=== PATIENT | female | born 1950 | race Caucasian/White ===

== ENCOUNTER 2017-08-13 09:04 | Inpatient (IN) | payer BC ==
[~2017-08-13] VITALS: Ht 160 cm; Wt 133.8 kg
[2017-08-13 09:04] VITALS: BP_SYST 165
[~2017-08-13 09:04] MED LIST: AMIO200T39 PO; AMLO5TAB4 PO; ARI1 PO; GLU500 PO; HYDR12.55 PO; RAMI10CA27 PO; WARF5TAB2 PO
[2017-08-13] MEDS ORDERED: DILTIAZEM HCL 25 MG/5 ML VIAL IVP ONE ×3 (09:15→10:30)
[2017-08-13] MEDS ORDERED: VALS320T10 PO (09:20)
[2017-08-13] MEDS ORDERED: PRAV20TA PO (09:20)
[2017-08-13 09:39] LABS: BASOPHILS % (AUTO) 0.5 % (0.0-2.0); EOSINOPHILS # (AUTO) 0.2 K/uL (0.0-0.4); EOSINOPHILS % (AUTO) 2.2 % (0.0-4.0); HEMATOCRIT 46.7 % (36-48); HEMOGLOBIN 15.6 g/dL (12.0-16.0); LYMPHOCYTES # (AUTO) 2.1 K/uL (1.0-5.5); LYMPHOCYTES % (AUTO) 29.9 % (20.5-51.5); MEAN CORPUSCULAR HEMOGLOBIN 33 pg (27-31); MEAN CORPUSCULAR HGB CONC 34 % (32-36); MEAN CORPUSCULAR VOLUME 100 fL (79.0-98.0); MONOCYTES # (AUTO) 0.3 K/uL (0.0-1.0); MONOCYTES % (AUTO) 4.6 % (1.7-9.3); NEUTROPHILS # (AUTO) 4.3 K/uL (1.8-7.7); NEUTROPHILS % (AUTO) 62.8 % (40.0-70.0); PLATELET COUNT (AUTO) 262 K/uL (130-430); RED BLOOD CELL COUNT(AUTO) 4.68 MIL/uL (4.2-6.2); RED CELL DISTRIBUTION WIDTH 12.5 % (9.0-15.0); WHITE BLOOD COUNT (AUTO) 6.9 K/uL (4.8-10.8)
[2017-08-13 09:54] LABS: CALCIUM 9.3 mg/dL (8.4-11.0); CREATININE 1.03 mg/dL (0.55-1.30); POTASSIUM 4.2 mmol/L (3.5-5.1)
[2017-08-13 09:54] LABS: BILIRUBIN,URINE NEGATIVE (NEGATIVE); CLARITY/URINE SL HAZY (CLEAR); COLOR,URINE YELLOW (YELLOW); GLUCOSE,URINE NEGATIVE (NEGATIVE); KETONES,URINE TRACE (NEGATIVE); LEUKOCYTE ESTERASE ,URINE 1+ (NEGATIVE); NITRITE, URINE NEGATIVE (NEGATIVE); PH,URINE 6.5 (5.0-8.0); PROTEIN URINE 2+ (NEGATIVE); UROBILINOGEN,URINE 0.2 (0.2-1.0)
[2017-08-13 09:59] LABS: ALBUMIN 3.8 g/dL (3.4-4.8); INR 1.6 (0.8-1.2); PROTHROMBIN TIME 16.4 SECS (9.5-12.5); TOTAL BILIRUBIN 0.7 mg/dL (0.0-1.0)
[2017-08-13 10:04] LABS: BLOOD, URINE TRACE (NEGATIVE)
[2017-08-13 10:14] LABS: BACTERIA,URINE FEW /HPF (None Seen); MUCUS,URINE None Seen /LPF (None Seen); RBC,URINE 0-3 /HPF (0-3)
[2017-08-13 12:07] VITALS: BP_SYST 139
[2017-08-13 12:10] VITALS: BP_SYST 139
[2017-08-13] MEDS ORDERED: METOPROLOL TARTRATE 25 MG TABLET PO ONE (12:15)
[2017-08-13] MEDS ORDERED: DEXTROSE 50% JECT 50 ML DISP.SYRIN IVP PRN (12:15)
[2017-08-13 16:00] VITALS: BP_SYST 181
[2017-08-13] MEDS: metFORMIN HCL 500 MG TABLET PO SCH (17:09)
[2017-08-13] MEDS: INSULIN REGULAR, HUMAN 100 UNITS/ML, 10 ML VIAL (novoLIN R) SUBCUT PRN (17:11)
[2017-08-13] MEDS ORDERED: SIMVASTATIN 10 MG TABLET PO SCH (18:00)
[2017-08-13] MEDS ORDERED: WARFARIN SODIUM 5 MG TABLET PO SCH (18:00)
[2017-08-13] MEDS: AMIODARONE HCL 200 MG TABLET PO SCH ×2 (19:31→21:25)
[2017-08-13 20:00] VITALS: BP_SYST 169
[2017-08-13] MEDS ORDERED: METOPROLOL TARTRATE 25 MG TABLET PO SCH (21:00)
[2017-08-13] MEDS ORDERED: ACETAMINOPHEN 325 MG TABLET PO PRN (21:15)
[2017-08-13] MEDS: METOPROLOL TARTRATE 25 MG TABLET PO SCH (21:25)
[2017-08-13 23:50] VITALS: BP_SYST 143
[2017-08-14] MEDS: INSULIN REGULAR, HUMAN 100 UNITS/ML, 10 ML VIAL (novoLIN R) SUBCUT PRN ×3 (00:07→11:40)
[2017-08-14 03:52] VITALS: BP_SYST 169
[2017-08-14] MEDS: AMIODARONE HCL 200 MG TABLET PO SCH ×2 (06:01→14:34)
[2017-08-14] MEDS ORDERED: ONDANSETRON HCL 4 MG/2 ML VIAL IVP PRN (06:45)
[2017-08-14 07:21] LABS: INR 1.9 (0.8-1.2); PROTHROMBIN TIME 19.6 SECS (9.5-12.5)
[2017-08-14 08:00] VITALS: BP_SYST 126
[2017-08-14] MEDS: METOPROLOL TARTRATE 25 MG TABLET PO SCH (08:22)
[2017-08-14] MEDS: metFORMIN HCL 500 MG TABLET PO SCH (08:22)
[2017-08-14] MEDS ORDERED: PRAVASTATIN SODIUM 20 MG TABLET (PRAVACHOL) PO SCH (09:00)
[2017-08-14] MEDS ORDERED: ANASTROZOLE 1 MG TABLET (ARIMIDEX) PO SCH (09:00)
[2017-08-14 11:28] VITALS: BP_SYST 144
[2017-08-14 15:26] VITALS: BP_SYST 130
[2017-08-14 16:10] VITALS: BP_SYST 144
== END 2017-08-14 16:55 | disposition home or self-care (01) | DRG 309 ==
LOC: SED 09:04 → STU 10:54
PROVIDERS: ADMIT Internal Medicine Hospice and Palliative Medicine; ATTEND Internal Medicine Hospice and Palliative Medicine
DX: I48.0 Paroxysmal atrial fibrillation (principal); Z68.43 Body mass index [BMI] 50.0-59.9, adult; I11.0 Hypertensive heart disease with heart failure; I50.9 Heart failure, unspecified; E11.65 Type 2 diabetes mellitus with hyperglycemia; E66.01 Morbid (severe) obesity due to excess calories; I48.2 Chronic atrial fibrillation; G47.33 Obstructive sleep apnea (adult) (pediatric); Z85.3 Personal history of malignant neoplasm of breast; Z90.11 Acquired absence of right breast and nipple; Z90.49 Acquired absence of other specified parts of digestive tract; Z79.899 Other long term (current) drug therapy; Z90.5 Acquired absence of kidney; Z79.84 Long term (current) use of oral hypoglycemic drugs; Z85.528 Personal history of other malignant neoplasm of kidney; Z92.21 Personal history of antineoplastic chemotherapy; Z92.3 Personal history of irradiation; Z88.5 Allergy status to narcotic agent; Z83.0 Family history of human immunodeficiency virus [HIV] disease; Z82.49 Family history of ischemic heart disease and other diseases of the circulatory system
CPT/HCPCS: 36415; 71010; 80053; 81000-TC; 82962; 83880; 84484; 85025; 85610-TC; 85730-TC; 87086; 93005; 93306; 96374; 96376; 99285; J1815; J2405; J3490

== ENCOUNTER 2017-09-01 15:19 | Inpatient (IN) | payer BC, OTHER ==
[~2017-09-01] VITALS: Ht 160 cm; Wt 128.8 kg
[~2017-09-01 15:19] MED LIST changes: -AMIO200T39 PO; -AMLO5TAB4 PO; +PRAV20TA PO; -RAMI10CA27 PO; +VALS320T10 PO
[2017-09-01 15:20] VITALS: BP_SYST 161
[2017-09-01 16:03] LABS: BASOPHILS % (AUTO) 0.5 % (0.0-2.0); EOSINOPHILS # (AUTO) 0.2 K/uL (0.0-0.4); EOSINOPHILS % (AUTO) 2.2 % (0.0-4.0); HEMATOCRIT 43.9 % (36-48); HEMOGLOBIN 14.4 g/dL (12.0-16.0); LYMPHOCYTES # (AUTO) 2.6 K/uL (1.0-5.5); LYMPHOCYTES % (AUTO) 35.3 % (20.5-51.5); MEAN CORPUSCULAR HEMOGLOBIN 33 pg (27-31); MEAN CORPUSCULAR HGB CONC 33 % (32-36); MEAN CORPUSCULAR VOLUME 100 fL (79.0-98.0); MONOCYTES # (AUTO) 0.3 K/uL (0.0-1.0); NEUTROPHILS # (AUTO) 4.2 K/uL (1.8-7.7); PLATELET COUNT (AUTO) 261 K/uL (130-430); RED BLOOD CELL COUNT(AUTO) 4.39 MIL/uL (4.2-6.2); RED CELL DISTRIBUTION WIDTH 11.6 % (9.0-15.0); WHITE BLOOD COUNT (AUTO) 7.3 K/uL (4.8-10.8)
[2017-09-01 16:14] LABS: CALCIUM 9.7 mg/dL (8.4-11.0); CREATININE 0.97 mg/dL (0.55-1.30)
[2017-09-01 16:18] LABS: INR 2.4 (0.8-1.2); PROTHROMBIN TIME 24.5 SECS (9.5-12.5)
[2017-09-01] MEDS ORDERED: AMLO5TAB92 PO (16:20)
[2017-09-01] MEDS ORDERED: METO50TA7 PO (16:23)
[2017-09-01] MEDS ORDERED: AMI200 PO (16:23)
[2017-09-01 16:24] LABS: ALBUMIN 3.7 g/dL (3.4-4.8); TOTAL BILIRUBIN 0.6 mg/dL (0.0-1.0)
[2017-09-01 18:05] VITALS: BP_SYST 123
[2017-09-01 19:45] VITALS: BP_SYST 119
[2017-09-01] MEDS ORDERED: ACETAMINOPHEN 325 MG TABLET PO PRN (19:45)
[2017-09-01] MEDS ORDERED: DEXTROSE 50% JECT 50 ML DISP.SYRIN IVP PRN (19:45)
[2017-09-01] MEDS ORDERED: NITROGLYCERIN 0.4 MG TAB.SUBL SL PRN (20:00)
[2017-09-01] MEDS ORDERED: HYDROcodone/ACETAMIN 5-325 MG TAB (NORCO/ VICODIN) PO PRN (20:00)
[2017-09-01] MEDS: METOPROLOL SUCCINATE 50 MG TAB.SR.24H (TOPROL XL) PO SCH (20:39)
[2017-09-01] MEDS: INSULIN ASPART 100 UNITS/ML, 10 ML VIAL (NovoLOG) SUBCUT PRN (20:40)
[2017-09-01] MEDS ORDERED: SIMVASTATIN 10 MG TABLET PO SCH (21:00)
[2017-09-02] VITALS: BP_SYST 111
[2017-09-02 04:15] VITALS: BP_SYST 118
[2017-09-02 06:33] LABS: BASOPHILS % (AUTO) 0.6 % (0.0-2.0); EOSINOPHILS # (AUTO) 0.2 K/uL (0.0-0.4); EOSINOPHILS % (AUTO) 3.2 % (0.0-4.0); HEMATOCRIT 41.8 % (36-48); HEMOGLOBIN 14.1 g/dL (12.0-16.0); LYMPHOCYTES # (AUTO) 2.4 K/uL (1.0-5.5); LYMPHOCYTES % (AUTO) 32.4 % (20.5-51.5); MEAN CORPUSCULAR HEMOGLOBIN 34 pg (27-31); MEAN CORPUSCULAR HGB CONC 34 % (32-36); MEAN CORPUSCULAR VOLUME 101 fL (79.0-98.0); MONOCYTES # (AUTO) 0.4 K/uL (0.0-1.0); MONOCYTES % (AUTO) 4.9 % (1.7-9.3); NEUTROPHILS # (AUTO) 4.3 K/uL (1.8-7.7); NEUTROPHILS % (AUTO) 58.9 % (40.0-70.0); PLATELET COUNT (AUTO) 247 K/uL (130-430); RED BLOOD CELL COUNT(AUTO) 4.15 MIL/uL (4.2-6.2); RED CELL DISTRIBUTION WIDTH 12.1 % (9.0-15.0); WHITE BLOOD COUNT (AUTO) 7.3 K/uL (4.8-10.8)
[2017-09-02 06:51] LABS: ALBUMIN 3.3 g/dL (3.4-4.8); CALCIUM 9.6 mg/dL (8.4-11.0); CREATININE 0.92 mg/dL (0.55-1.30); POTASSIUM 3.8 mmol/L (3.5-5.1); TOTAL BILIRUBIN 0.6 mg/dL (0.0-1.0)
[2017-09-02 08:00] VITALS: BP_SYST 133
[2017-09-02] MEDS ORDERED: metFORMIN HCL 500 MG TABLET PO SCH (08:00)
[2017-09-02] MEDS: METOPROLOL SUCCINATE 50 MG TAB.SR.24H (TOPROL XL) PO SCH (08:41)
[2017-09-02] MEDS ORDERED: AMIODARONE HCL 200 MG TABLET PO SCH (09:00)
[2017-09-02] MEDS ORDERED: ANASTROZOLE 1 MG TABLET (ARIMIDEX) PO SCH (09:00)
[2017-09-02] MEDS ORDERED: amLODIPine BESYLATE 5 MG TABLET PO SCH (09:00)
[2017-09-02] MEDS ORDERED: VALSARTAN 160 MG TABLET (DIOVAN) PO SCH (09:00)
[2017-09-02] MEDS: INSULIN ASPART 100 UNITS/ML, 10 ML VIAL (NovoLOG) SUBCUT PRN (11:37)
[2017-09-02 12:08] VITALS: BP_SYST 137
[2017-09-02 13:57] VITALS: BP_SYST 107
[2017-09-02] MEDS ORDERED: WARFARIN SODIUM 5 MG TABLET PO SCH (18:00)
[2017-09-02] MEDS ORDERED: METOPROLOL SUCCINATE 50 MG TAB.SR.24H (TOPROL XL) PO SCH (21:00)
== END 2017-09-02 15:45 | disposition home or self-care (01) | DRG 309 ==
LOC: SED 15:19 → STU 17:36
PROVIDERS: ADMIT Internal Medicine Hospice and Palliative Medicine; ATTEND Internal Medicine Hospice and Palliative Medicine
DX: I48.0 Paroxysmal atrial fibrillation (principal); Z68.43 Body mass index [BMI] 50.0-59.9, adult; E66.01 Morbid (severe) obesity due to excess calories; E11.9 Type 2 diabetes mellitus without complications; G47.30 Sleep apnea, unspecified; R07.9 Chest pain, unspecified; I10 Essential (primary) hypertension; Z79.01 Long term (current) use of anticoagulants; Z90.5 Acquired absence of kidney; Z88.5 Allergy status to narcotic agent; Z90.49 Acquired absence of other specified parts of digestive tract; Z82.49 Family history of ischemic heart disease and other diseases of the circulatory system; Z79.899 Other long term (current) drug therapy
CPT/HCPCS: 36415; 71010; 80053; 82962; 83880; 84484; 85025; 85610-TC; 85730-TC; 87081; 93005; 99285; J1815

== ENCOUNTER 2018-10-20 08:48 | Inpatient (IN) | payer BC, OTHER ==
[~2018-10-20] VITALS: Ht 160 cm; Wt 128.4 kg
[2018-10-20 08:48] VITALS: BP_SYST 195
[~2018-10-20 08:48] MED LIST changes: +AMLO5TAB92 PO; +METO25TA6 PO; -VALS320T10 PO; +VALS320T2 PO
[2018-10-20] MEDS ORDERED: DILTIAZEM HCL 25 MG/5 ML VIAL IVP ONE ×2 (09:15→10:00)
[2018-10-20 09:19] LABS: BASOPHILS # (AUTO) 0.1 K/uL (0.0-0.2); BASOPHILS % (AUTO) 0.6 % (0.0-2.0); EOSINOPHILS # (AUTO) 0.2 K/uL (0.0-0.4); HEMATOCRIT 45.2 % (36-48); HEMOGLOBIN 15.4 g/dL (12.0-16.0); LYMPHOCYTES # (AUTO) 3.7 K/uL (1.0-5.5); LYMPHOCYTES % (AUTO) 40.4 % (20.5-51.5); MEAN CORPUSCULAR HEMOGLOBIN 35 pg (27-31); MEAN CORPUSCULAR HGB CONC 34 % (32-36); MEAN CORPUSCULAR VOLUME 102 fL (79.0-98.0); MONOCYTES # (AUTO) 0.4 K/uL (0.0-1.0); MONOCYTES % (AUTO) 4.7 % (1.7-9.3); NEUTROPHILS # (AUTO) 4.8 K/uL (1.8-7.7); NEUTROPHILS % (AUTO) 52.3 % (40.0-70.0); PLATELET COUNT (AUTO) 223 K/uL (130-430); RED BLOOD CELL COUNT(AUTO) 4.44 MIL/uL (4.2-6.2); RED CELL DISTRIBUTION WIDTH 11.7 % (9.0-15.0); WHITE BLOOD COUNT (AUTO) 9.2 K/uL (4.8-10.8)
[2018-10-20 09:27] LABS: PROTHROMBIN TIME 9.9 SECS (9.5-12.5)
[2018-10-20 09:32] LABS: CALCIUM 9.9 mg/dL (8.4-11.0); POTASSIUM 3.6 mmol/L (3.5-5.1)
[2018-10-20] MEDS ORDERED: PRAV20TA PO (09:32)
[2018-10-20] MEDS ORDERED: METF500T6 PO (09:32)
[2018-10-20] MEDS ORDERED: APIX5TAB4 PO (09:32)
[2018-10-20] MEDS ORDERED: NOR10 PO (09:32)
[2018-10-20] MEDS ORDERED: VALS320T2 PO (09:32)
[2018-10-20] MEDS ORDERED: ARI1 PO (09:32)
[2018-10-20 09:33] LABS: CREATININE 0.94 mg/dL (0.55-1.30)
[2018-10-20 09:45] LABS: ALBUMIN 3.3 g/dL (3.4-4.8); TOTAL BILIRUBIN 0.7 mg/dL (0.0-1.0)
[2018-10-20] MEDS ORDERED: metFORMIN HCL 500 MG TABLET PO ONE (10:30)
[2018-10-20] MEDS ORDERED: METOPROLOL TARTRATE 25 MG TABLET PO ONE ×2 (10:30→21:00)
[2018-10-20] MEDS ORDERED: DEXTROSE 50% JECT 50 ML DISP.SYRIN IVP PRN (10:30)
[2018-10-20] MEDS ORDERED: SIMVASTATIN 10 MG TABLET PO ONE (10:45)
[2018-10-20] MEDS ORDERED: ANASTROZOLE 1 MG TABLET (ARIMIDEX) PO ONE (10:45)
[2018-10-20 11:30] VITALS: BP_SYST 149
[2018-10-20] MEDS: INSULIN REGULAR, HUMAN 100 UNITS/ML, 10 ML VIAL (novoLIN R) SUBCUT PRN ×2 (11:58→17:30)
[2018-10-20 15:53] VITALS: BP_SYST 119; BP_SYST 140
[2018-10-20] MEDS: metFORMIN HCL 500 MG TABLET PO SCH (17:28)
[2018-10-20 19:00] VITALS: BP_SYST 162
[2018-10-20 20:00] VITALS: BP_SYST 162
[2018-10-20] MEDS: METOPROLOL TARTRATE 25 MG TABLET PO SCH (20:58)
[2018-10-21 00:14] VITALS: BP_SYST 118
[2018-10-21] MEDS: INSULIN REGULAR, HUMAN 100 UNITS/ML, 10 ML VIAL (novoLIN R) SUBCUT PRN ×4 (00:30→17:23)
[2018-10-21 08:11] VITALS: BP_SYST 146
[2018-10-21] MEDS: SIMVASTATIN 10 MG TABLET PO SCH (08:12)
[2018-10-21] MEDS: ANASTROZOLE 1 MG TABLET (ARIMIDEX) PO SCH (08:13)
[2018-10-21] MEDS: metFORMIN HCL 500 MG TABLET PO SCH ×2 (08:13→17:20)
[2018-10-21] MEDS: METOPROLOL TARTRATE 25 MG TABLET PO SCH (08:13)
[2018-10-21] MEDS ORDERED: PRAVASTATIN SODIUM 20 MG TABLET (PRAVACHOL) PO SCH (09:00)
[2018-10-21] MEDS ORDERED: APIXABAN 2.5 MG TABLET PO ONE (09:15)
[2018-10-21 12:00] VITALS: BP_SYST 133
[2018-10-21] MEDS ORDERED: POTASSIUM CHLORIDE 20 MEQ TAB.PRT.SR PO ONE (14:30)
[2018-10-21 16:00] VITALS: BP_SYST 137
[2018-10-21 19:20] VITALS: BP_SYST 153
[2018-10-21] MEDS: SOTALOL HCL 80 MG TABLET PO SCH (21:49)
[2018-10-21] MEDS: APIXABAN 2.5 MG TABLET PO SCH (21:54)
[2018-10-22] MEDS: INSULIN REGULAR, HUMAN 100 UNITS/ML, 10 ML VIAL (novoLIN R) SUBCUT PRN ×2 (00:12→06:08)
[2018-10-22 00:26] VITALS: BP_SYST 132
[2018-10-22 08:02] VITALS: BP_SYST 146
[2018-10-22] MEDS: APIXABAN 2.5 MG TABLET PO SCH (08:34)
[2018-10-22] MEDS: SIMVASTATIN 10 MG TABLET PO SCH (08:34)
[2018-10-22] MEDS: metFORMIN HCL 500 MG TABLET PO SCH (08:35)
[2018-10-22] MEDS: ANASTROZOLE 1 MG TABLET (ARIMIDEX) PO SCH (08:35)
[2018-10-22] MEDS: SOTALOL HCL 80 MG TABLET PO SCH (08:35)
[2018-10-22 09:41] VITALS: BP_SYST 146
[2018-10-22] MEDS ORDERED: SOTA80TA PO (09:46)
== END 2018-10-22 10:27 | disposition home or self-care (01) | DRG 309 ==
LOC: SED 08:48 → STU 10:18
PROVIDERS: ADMIT Internal Medicine Hospice and Palliative Medicine; ATTEND Internal Medicine Hospice and Palliative Medicine
DX: I48.0 Paroxysmal atrial fibrillation (principal); Z68.43 Body mass index [BMI] 50.0-59.9, adult; I50.30 Unspecified diastolic (congestive) heart failure; G47.30 Sleep apnea, unspecified; I45.10 Unspecified right bundle-branch block; I11.0 Hypertensive heart disease with heart failure; E11.9 Type 2 diabetes mellitus without complications; E66.01 Morbid (severe) obesity due to excess calories; Z85.528 Personal history of other malignant neoplasm of kidney; Z90.5 Acquired absence of kidney; Z88.5 Allergy status to narcotic agent; Z79.899 Other long term (current) drug therapy; Z90.49 Acquired absence of other specified parts of digestive tract; Z90.11 Acquired absence of right breast and nipple; Z79.84 Long term (current) use of oral hypoglycemic drugs
CPT/HCPCS: 36415; 71045; 80053; 82550-TC; 82962; 83880; 84484; 85025; 85610-TC; 85730-TC; 93005; 93306; 96374; 96376; 99291; G0378; J1815; J3490

== ENCOUNTER 2018-11-19 10:56 | Inpatient (IN) | payer BC, OTHER ==
[~2018-11-19] VITALS: Ht 160 cm; Wt 128.4 kg
[~2018-11-19 10:56] MED LIST changes: -AMLO5TAB92 PO; +ANAS1TAB51 PO; +APIX5TAB4 PO; -ARI1 PO; +METF-379 PO; -METO25TA6 PO; +SOTA80TA PO
[2018-11-19 11:08] VITALS: BP_SYST 163
[2018-11-19] MEDS ORDERED: NACL 0.9% 1,000 ML IV ONE ×2 (12:00→14:45)
[2018-11-19] MEDS ORDERED: ONDANSETRON HCL 4 MG/2 ML VIAL IVP ONE (12:15)
[2018-11-19 12:21] LABS: EOSINOPHILS % (AUTO) 1.7 % (0.0-4.0); HEMATOCRIT 42.2 % (36-48); HEMOGLOBIN 14.3 g/dL (12.0-16.0); LYMPHOCYTES % (AUTO) 20.2 % (20.5-51.5); MEAN CORPUSCULAR HEMOGLOBIN 34 pg (27-31); MEAN CORPUSCULAR HGB CONC 34 % (32-36); MEAN CORPUSCULAR VOLUME 101 fL (79.0-98.0); MONOCYTES % (AUTO) 4.6 % (1.7-9.3); NEUTROPHILS % (AUTO) 72.9 % (40.0-70.0); PLATELET COUNT (AUTO) 221 K/uL (130-430); RED BLOOD CELL COUNT(AUTO) 4.17 MIL/uL (4.2-6.2); RED CELL DISTRIBUTION WIDTH 12.8 % (9.0-15.0)
[2018-11-19 12:22] LABS: BASOPHILS # (AUTO) 0.1 K/uL (0.0-0.2); BASOPHILS % (AUTO) 0.6 % (0.0-2.0); EOSINOPHILS # (AUTO) 0.2 K/uL (0.0-0.4); MONOCYTES # (AUTO) 0.5 K/uL (0.0-1.0); NEUTROPHILS # (AUTO) 7.3 K/uL (1.8-7.7)
[2018-11-19 12:36] LABS: ANION GAP 6 (5-15); CALCIUM 8.8 mg/dL (8.4-11.0); CHLORIDE 103 mmol/L (98-107); CREATININE 0.84 mg/dL (0.55-1.30); GLUCOSE 237 mg/dL (70-99); POTASSIUM 4.1 mmol/L (3.5-5.1); SODIUM SERUM 139 mmol/L (136-145); UREA NITROGEN, BLOOD 8 mg/dL (8-21)
[2018-11-19 12:38] LABS: GFR AFRICAN AMERICAN 87 mL/min (>90)
[2018-11-19 12:45] LABS: ALANINE AMINOTRANSFERASE 49 U/L (12-78); ASPARTATE AMINOTRANSFERASE 34 U/L (10-37); TOTAL BILIRUBIN 0.6 mg/dL (0.0-1.0)
[2018-11-19 14:05] LABS: BILIRUBIN,URINE NEGATIVE (NEGATIVE); BLOOD, URINE 2+ (NEGATIVE); CLARITY/URINE CLOUDY (CLEAR); COLOR,URINE YELLOW (YELLOW); GLUCOSE,URINE TRACE (NEGATIVE); KETONES,URINE 1+ (NEGATIVE); LEUKOCYTE ESTERASE ,URINE 3+ (NEGATIVE); NITRITE, URINE POSITIVE (NEGATIVE); PH,URINE 5.5 (5.0-8.0); PROTEIN URINE TRACE (NEGATIVE); UROBILINOGEN,URINE 0.2 (0.2-1.0)
[2018-11-19] MEDS ORDERED: cefTRIAXone 1 GM IVPB PREMIX 50 ML IV ONE (14:30)
[2018-11-19 15:06] LABS: BACTERIA,URINE MODERATE /HPF (None Seen); MUCUS,URINE None Seen /LPF (None Seen); RBC,URINE 20-50 /HPF (0-3); WBC,URINE >100 /HPF (0-3); YEAST,URINE None Seen /HPF (None Seen)
[2018-11-19] MEDS ORDERED: MUPIROCIN 2% TOPICAL OINTMENT 22 GM NS PRN (18:30)
[2018-11-19] MEDS ORDERED: MECLIZINE HCL 25 MG TABLET (ANITVERT) PO PRN (18:30)
[2018-11-19] MEDS ORDERED: DEXTROSE 50% JECT 50 ML DISP.SYRIN IVP PRN (18:30)
[2018-11-19] MEDS ORDERED: LORazepam 2 MG/ML VIAL IVP PRN (18:30)
[2018-11-19] MEDS ORDERED: MAGNESIUM SULFATE 50 ML IV PRN (18:30)
[2018-11-19] MEDS ORDERED: ZOLPIDEM TARTRATE 5 MG TABLET PO PRN (18:30)
[2018-11-19] MEDS ORDERED: ONDANSETRON HCL 4 MG/2 ML VIAL IVP PRN (18:30)
[2018-11-19] MEDS ORDERED: POTASSIUM CHLORIDE 20 MEQ TAB.PRT.SR PO PRN (18:30)
[2018-11-19] MEDS ORDERED: DOCUSATE SODIUM 100 MG CAPSULE PO PRN (18:30)
[2018-11-19 18:41] LABS: PROTHROMBIN TIME 10.1 SECS (9.5-12.5)
[2018-11-19 19:45] VITALS: BP_SYST 151
[2018-11-19] MEDS ORDERED: HEPARIN SODIUM,PORCINE 5000 UNITS/ML VIAL SUBCUT SCH (21:00)
[2018-11-19] MEDS: NACL 0.9% 1,000 ML IV SCH (21:53)
[2018-11-19] MEDS: INSULIN LISPRO SLIDING SCALE 100 UNITS/ML VIAL (humaLOG) SUBCUT PRN (22:01)
[2018-11-20 02:25] VITALS: BP_SYST 124
[2018-11-20] MEDS: ACETAMINOPHEN 325 MG TABLET PO PRN ×2 (02:53→08:50)
[2018-11-20 03:30] VITALS: BP_SYST 124
[2018-11-20] MEDS: NACL 0.9% 1,000 ML IV SCH ×2 (04:30→15:43)
[2018-11-20 05:42] LABS: BARBITURATE, URINE NEGATIVE (NEG <=200); BENZODIAZEPINE, URINE NEGATIVE (NEG <=150); METHAMPHETAMINES SCREEN,URINE NEGATIVE (NEG <=500); URINE AMPHETAMINE NEGATIVE (NEG <=500); URINE METHADONE NEGATIVE (NEG <=200)
[2018-11-20 05:43] LABS: CANNABINOID, URINE NEGATIVE (NEG <=50); COCAINE, URINE NEGATIVE (NEG <=150); OPIATE, URINE NEGATIVE (NEG <=100); PHENCYCLIDINE SCREEN,URINE NEGATIVE (NEG <=25); UR TRICYCLIC ANTIDEPRESSANTS NEGATIVE (NEG <=300); URINE OXYCODONE SCREEN NEGATIVE (NEG <=100); URINE PROPOXYPHENE SCREEN NEGATIVE (NEG <=300)
[2018-11-20] MEDS: INSULIN LISPRO SLIDING SCALE 100 UNITS/ML VIAL (humaLOG) SUBCUT PRN ×3 (06:09→20:42)
[2018-11-20 08:14] VITALS: BP_SYST 161
[2018-11-20 08:19] LABS: CALCIUM 8.5 mg/dL (8.4-11.0); CREATININE 0.71 mg/dL (0.55-1.30); POTASSIUM 3.6 mmol/L (3.5-5.1)
[2018-11-20] MEDS: ANASTROZOLE 1 MG TABLET (ARIMIDEX) PO SCH (08:39)
[2018-11-20] MEDS: metFORMIN HCL 500 MG TABLET PO SCH ×2 (08:39→17:29)
[2018-11-20] MEDS: SIMVASTATIN 10 MG TABLET PO SCH (08:39)
[2018-11-20] MEDS: cefTRIAXone 1 GM in D5W 50 ML IV SCH (08:40)
[2018-11-20] MEDS: APIXABAN 2.5 MG TABLET PO SCH ×2 (08:40→20:47)
[2018-11-20 09:16] LABS: WHITE BLOOD COUNT (AUTO) 7.9 K/uL (4.8-10.8)
[2018-11-20 09:17] LABS: HEMATOCRIT 39.7 % (36-48); HEMOGLOBIN 13.6 g/dL (12.0-16.0); MEAN CORPUSCULAR HEMOGLOBIN 35 pg (27-31); MEAN CORPUSCULAR HGB CONC 34 % (32-36); MEAN CORPUSCULAR VOLUME 102 fL (79.0-98.0); NEUTROPHILS % (AUTO) 56.9 % (40.0-70.0); PLATELET COUNT (AUTO) 209 K/uL (130-430); RED CELL DISTRIBUTION WIDTH 12.5 % (9.0-15.0)
[2018-11-20 09:18] LABS: BASOPHILS # (AUTO) 0.1 K/uL (0.0-0.2); BASOPHILS % (AUTO) 0.6 % (0.0-2.0); EOSINOPHILS # (AUTO) 0.2 K/uL (0.0-0.4); EOSINOPHILS % (AUTO) 2.4 % (0.0-4.0); LYMPHOCYTES # (AUTO) 2.7 K/uL (1.0-5.5); LYMPHOCYTES % (AUTO) 34.7 % (20.5-51.5); MONOCYTES # (AUTO) 0.4 K/uL (0.0-1.0); MONOCYTES % (AUTO) 5.4 % (1.7-9.3); NEUTROPHILS # (AUTO) 4.5 K/uL (1.8-7.7)
[2018-11-20 11:29] VITALS: BP_SYST 169
[2018-11-20] MEDS ORDERED: VALSARTAN 160 MG TABLET (DIOVAN) PO ONE (15:15)
[2018-11-20 15:41] VITALS: BP_SYST 135
[2018-11-20] MEDS: SOTALOL HCL 80 MG TABLET PO SCH (20:48)
[2018-11-21] MEDS: NACL 0.9% 1,000 ML IV SCH (00:06)
[2018-11-21 02:01] VITALS: BP_SYST 136
[2018-11-21] MEDS: INSULIN LISPRO SLIDING SCALE 100 UNITS/ML VIAL (humaLOG) SUBCUT PRN ×3 (06:12→20:35)
[2018-11-21 08:11] VITALS: BP_SYST 155
[2018-11-21] MEDS: metFORMIN HCL 500 MG TABLET PO SCH ×2 (08:49→17:50)
[2018-11-21] MEDS: cefTRIAXone 1 GM in D5W 50 ML IV SCH (08:50)
[2018-11-21] MEDS: VALSARTAN 160 MG TABLET (DIOVAN) PO SCH (08:50)
[2018-11-21] MEDS: APIXABAN 2.5 MG TABLET PO SCH ×2 (08:51→20:34)
[2018-11-21] MEDS: SOTALOL HCL 80 MG TABLET PO SCH ×2 (08:52→20:31)
[2018-11-21] MEDS: SIMVASTATIN 10 MG TABLET PO SCH (08:52)
[2018-11-21] MEDS: ANASTROZOLE 1 MG TABLET (ARIMIDEX) PO SCH (08:52)
[2018-11-21 10:06] LABS: BASOPHILS # (AUTO) 0.1 K/uL (0.0-0.2); EOSINOPHILS # (AUTO) 0.2 K/uL (0.0-0.4); EOSINOPHILS % (AUTO) 3.3 % (0.0-4.0); HEMATOCRIT 44.7 % (36-48); LYMPHOCYTES # (AUTO) 2.2 K/uL (1.0-5.5); LYMPHOCYTES % (AUTO) 31.2 % (20.5-51.5); MEAN CORPUSCULAR HEMOGLOBIN 34 pg (27-31); MEAN CORPUSCULAR HGB CONC 33 % (32-36); MEAN CORPUSCULAR VOLUME 102 fL (79.0-98.0); MONOCYTES # (AUTO) 0.3 K/uL (0.0-1.0); MONOCYTES % (AUTO) 4.3 % (1.7-9.3); NEUTROPHILS # (AUTO) 4.3 K/uL (1.8-7.7); NEUTROPHILS % (AUTO) 60.2 % (40.0-70.0); PLATELET COUNT (AUTO) 233 K/uL (130-430); RED BLOOD CELL COUNT(AUTO) 4.37 MIL/uL (4.2-6.2); RED CELL DISTRIBUTION WIDTH 12.9 % (9.0-15.0); WHITE BLOOD COUNT (AUTO) 7.1 K/uL (4.8-10.8)
[2018-11-21 10:08] LABS: CALCIUM 9.6 mg/dL (8.4-11.0); CREATININE 0.75 mg/dL (0.55-1.30); POTASSIUM 4.2 mmol/L (3.5-5.1)
[2018-11-21 12:13] VITALS: BP_SYST 161
[2018-11-21] MEDS: MECLIZINE HCL 25 MG TABLET (ANITVERT) PO SCH ×2 (14:34→20:32)
[2018-11-21 17:11] VITALS: BP_SYST 135
[2018-11-21 20:00] VITALS: BP_SYST 153
[2018-11-22] VITALS: BP_SYST 145
[2018-11-22] MEDS: NACL 0.9% 1,000 ML IV SCH (01:13)
[2018-11-22] MEDS: INSULIN LISPRO SLIDING SCALE 100 UNITS/ML VIAL (humaLOG) SUBCUT PRN ×2 (06:05→12:33)
[2018-11-22 07:06] LABS: CALCIUM 9.2 mg/dL (8.4-11.0); CREATININE 0.82 mg/dL (0.55-1.30); POTASSIUM 3.8 mmol/L (3.5-5.1)
[2018-11-22 07:42] LABS: HEMATOCRIT 39.6 % (36-48); HEMOGLOBIN 13.7 g/dL (12.0-16.0); MEAN CORPUSCULAR HEMOGLOBIN 35 pg (27-31); MEAN CORPUSCULAR HGB CONC 35 % (32-36); MEAN CORPUSCULAR VOLUME 102 fL (79.0-98.0); PLATELET COUNT (AUTO) 256 K/uL (130-430); RED CELL DISTRIBUTION WIDTH 12.8 % (9.0-15.0); WHITE BLOOD COUNT (AUTO) 6.7 K/uL (4.8-10.8)
[2018-11-22 08:00] VITALS: BP_SYST 133
[2018-11-22] MEDS: VALSARTAN 160 MG TABLET (DIOVAN) PO SCH (08:48)
[2018-11-22] MEDS: metFORMIN HCL 500 MG TABLET PO SCH (08:48)
[2018-11-22] MEDS: cefTRIAXone 1 GM in D5W 50 ML IV SCH (08:48)
[2018-11-22] MEDS: MECLIZINE HCL 25 MG TABLET (ANITVERT) PO SCH (08:49)
[2018-11-22] MEDS: APIXABAN 2.5 MG TABLET PO SCH (08:49)
[2018-11-22] MEDS: ANASTROZOLE 1 MG TABLET (ARIMIDEX) PO SCH (08:51)
[2018-11-22] MEDS: SOTALOL HCL 80 MG TABLET PO SCH (08:52)
[2018-11-22 10:58] LABS: BASOPHILS # (AUTO) 0.1 K/uL (0.0-0.2); BASOPHILS % (AUTO) 0.9 % (0.0-2.0); EOSINOPHILS # (AUTO) 0.2 K/uL (0.0-0.4); EOSINOPHILS % (AUTO) 3.4 % (0.0-4.0); LYMPHOCYTES # (AUTO) 2.6 K/uL (1.0-5.5); LYMPHOCYTES % (AUTO) 39.1 % (20.5-51.5); MONOCYTES # (AUTO) 0.4 K/uL (0.0-1.0); MONOCYTES % (AUTO) 5.3 % (1.7-9.3); NEUTROPHILS # (AUTO) 3.4 K/uL (1.8-7.7)
[2018-11-22 10:59] LABS: NEUTROPHILS % (AUTO) 51.3 % (40.0-70.0)
[2018-11-22] MEDS ORDERED: GADOPENTETATE DIMEGLUMINE 15 ML VIAL IV ONE (12:49)
[2018-11-22] MEDS ORDERED: GADOPENTETATE DIMEGLUMINE 5 ML VIAL IV ONE (12:49)
[2018-11-22 15:14] VITALS: BP_SYST 127
[2018-11-22 17:02] VITALS: BP_SYST 127
== END 2018-11-22 18:05 | disposition home or self-care (01) | DRG 690 ==
LOC: SED 10:56 → SMU 17:20
PROVIDERS: ADMIT Internal Medicine Hospice and Palliative Medicine; ATTEND Internal Medicine Hospice and Palliative Medicine
DX: N39.0 Urinary tract infection, site not specified (principal); R55 Syncope and collapse; E11.65 Type 2 diabetes mellitus with hyperglycemia; E78.00 Pure hypercholesterolemia, unspecified; E78.5 Hyperlipidemia, unspecified; G47.33 Obstructive sleep apnea (adult) (pediatric); I10 Essential (primary) hypertension; I25.10 Atherosclerotic heart disease of native coronary artery without angina pectoris; B96.20 Unspecified Escherichia coli [E. coli] as the cause of diseases classified elsewhere; I48.2 Chronic atrial fibrillation; Z82.49 Family history of ischemic heart disease and other diseases of the circulatory system; Z85.3 Personal history of malignant neoplasm of breast; Z85.528 Personal history of other malignant neoplasm of kidney; Z83.3 Family history of diabetes mellitus
CPT/HCPCS: 36415; 70450-TC; 70553; 71045; 80048; 80053; 80307; 81000-TC; 82962; 83036; 83735-TC; 84484; 85025; 85610-TC; 87081; 87086; 87186-TC; 93005; 93880; 94660; 96361; 96365; 96375; 99285; A9579; J0696; J2405; J3475; J7030; J7060; J8597

== ENCOUNTER 2020-06-29 03:50 | Emergency (ER) | payer BC, OTHER ==
[~2020-06-29] VITALS: Ht 160 cm; Wt 113.4 kg
[2020-06-29 04:07] VITALS: BP_SYST 149
[2020-06-29 05:23] VITALS: BP_SYST 126
== END 2020-06-29 05:24 | disposition home or self-care (01) ==
LOC: SED 03:50
DX: R04.0 Epistaxis (principal); I10 Essential (primary) hypertension; E11.9 Type 2 diabetes mellitus without complications; I48.91 Unspecified atrial fibrillation; Z86.73 Personal history of transient ischemic attack (TIA), and cerebral infarction without residual deficits; Z79.899 Other long term (current) drug therapy; Z88.6 Allergy status to analgesic agent
CPT/HCPCS: 99283

== ENCOUNTER 2020-07-17 21:48 | Emergency (ER) | payer BC, OTHER ==
[~2020-07-17] VITALS: Ht 160 cm; Wt 113.4 kg
--- NOTE | 2020-07-17 22:02 | NUR ---
Patient to ER bed 06 to gown for evaluation. Side rails up.
[2020-07-17 22:03] VITALS: BP_SYST 151
--- NOTE | 2020-07-17 22:07 | NUR ---
pt a&o x4 from home c/o of nose bleed that started prior to arrival randomly. pt denies trauma or pain to the nose. pt states her nose has been dry because of the weather. pt has been using her CPAP at night, and a humidifer in the living room, and nasal spray. pt has been seen in this ER for similar symptoms. pt denies nausea, headache, vomiting.
--- NOTE | 2020-07-17 22:16 | NUR ---
ER Dr. Gaviria at bedside examining patient.
--- NOTE | 2020-07-17 23:37 | NUR ---
patients nose has stopped bleeding. md aware.
[2020-07-18] MEDS: TRANEXAMIC ACID 1,000 MG/10 ML VIAL IV ONE (00:03)
[2020-07-18 00:04] VITALS: BP_SYST 142
--- NOTE | 2020-07-18 00:04 | NUR ---
Patient given written and verbal discharge instructions and verbalizes understanding. ER MD discussed with patient the results and treatment provided. Patient in stable condition. ID arm band removed. no Rx given. Patient educated on pain management and to follow up with PMD. Pain Scale 0/10. Opportunity for questions provided and answered. Medication side effect fact sheet provided.
== END 2020-07-18 00:04 | disposition home or self-care (01) ==
LOC: SED 21:48
DX: R04.0 Epistaxis (principal)
CPT/HCPCS: 99281; J3490

== ENCOUNTER 2020-07-21 03:56 | Emergency (ER) | payer BC, OTHER ==
[~2020-07-21] VITALS: Ht 162.6 cm; Wt 104.3 kg
[2020-07-21 04:10] VITALS: BP_SYST 168
--- NOTE | 2020-07-21 04:10 | NUR ---
Patient to ER bed 7 to gown for evaluation. Side rails up.
--- NOTE | 2020-07-21 04:16 | NUR ---
Dr. Vargas bedside for pt eval
--- NOTE | 2020-07-21 04:20 | NUR ---
Dr Vargas at bedside. 4X4 guaze saturated w/ Tranexamic acid and placed in R nare by Dr Vargas. Pt tolerated well.
--- NOTE | 2020-07-21 04:21 | NUR ---
Pt presents to the Er c/o nose bleed x today. Pt has been to [facility] ER for similar symptoms. Pt reports taking blood thinners, warfin and elaquis. Pt reports using CPAP and humidifer at home. Denies fever, CP and sick contacts.
[2020-07-21] MEDS ORDERED: TRANEXAMIC ACID 1,000 MG/10 ML VIAL IV ONE (04:30)
[2020-07-21] MEDS ORDERED: TRANEXAMIC ACID 1,000 MG/10 ML VIAL ONE (04:38)
[2020-07-21] MEDS ORDERED: PHENYLEPHRINE HCL 1% NASAL 15 ML NASPR NS ONE (05:30)
--- NOTE | 2020-07-21 05:30 | NUR ---
Pt has stopped bleeding from R Nares, Dr Vargas aware.
--- NOTE | 2020-07-21 05:40 | NUR ---
Phenylephrine HCL nasal spray not available. aware.
[2020-07-21] MEDS ORDERED: PHENYLEPHRINE HCL 10 MG/ML VIAL (NEOSYNEPHRINE) ONE (05:54)
[2020-07-21 06:12] VITALS: BP_SYST 168
--- NOTE | 2020-07-21 06:12 | NUR ---
Patient given written and verbal discharge instructions and verbalizes understanding. ER MD discussed with patient the results and treatment provided. Patient in stable condition. ID arm band removed. Rx of Oxymetazoline HCL 0.5% given. Patient educated on pain management and to follow up with PMD. Opportunity for questions provided and answered. Medication side effect fact sheet provided.
== END 2020-07-21 06:12 | disposition home or self-care (01) ==
LOC: SED 03:56
DX: R04.0 Epistaxis (principal); I10 Essential (primary) hypertension; E11.9 Type 2 diabetes mellitus without complications; I48.91 Unspecified atrial fibrillation; G47.30 Sleep apnea, unspecified; Z86.73 Personal history of transient ischemic attack (TIA), and cerebral infarction without residual deficits; Z85.528 Personal history of other malignant neoplasm of kidney; Z79.899 Other long term (current) drug therapy; Z88.6 Allergy status to analgesic agent
CPT/HCPCS: 96374; 99283; J3490; J2370

== ENCOUNTER 2020-07-25 20:44 | Inpatient (IN) | payer BC, OTHER ==
[~2020-07-25] VITALS: Ht 160 cm; Wt 113.4 kg
[2020-07-25 20:50] VITALS: BP_SYST 163
[2020-07-25 21:47] LABS: BASOPHILS # (AUTO) 0.2 K/uL (0.0-0.2); BASOPHILS % (AUTO) 2.7 % (0.0-2.0); EOSINOPHILS # (AUTO) 0.2 K/uL (0.0-0.4); EOSINOPHILS % (AUTO) 2.4 % (0.0-4.0); HEMATOCRIT 42.2 % (36-48); HEMOGLOBIN 14.3 g/dL (12.0-16.0); LYMPHOCYTES # (AUTO) 2.3 K/uL (1.0-5.5); LYMPHOCYTES % (AUTO) 28.4 % (20.5-51.5); MEAN CORPUSCULAR HEMOGLOBIN 34 pg (27-31); MEAN CORPUSCULAR HGB CONC 34 % (32-36); MEAN CORPUSCULAR VOLUME 99 fL (79.0-98.0); MONOCYTES # (AUTO) 0.4 K/uL (0.0-1.0); MONOCYTES % (AUTO) 5.1 % (1.7-9.3); NEUTROPHILS % (AUTO) 61.4 % (40.0-70.0); PLATELET COUNT (AUTO) 265 K/uL (130-430); RED BLOOD CELL COUNT(AUTO) 4.26 MIL/uL (4.2-6.2); WHITE BLOOD COUNT (AUTO) 8.1 K/uL (4.8-10.8)
[2020-07-25] MEDS ORDERED: ANAS1TAB51 PO (21:49)
[2020-07-25] MEDS ORDERED: SOTA80TA PO (21:49)
[2020-07-25] MEDS ORDERED: ROSU5TAB PO (21:49)
[2020-07-25] MEDS ORDERED: APIX5TAB PO (21:49)
[2020-07-25] MEDS ORDERED: AMLO5TAB4 PO (21:49)
[2020-07-25 22:35] LABS: CALCIUM 9.6 mg/dL (8.4-11.0); CREATININE 0.81 mg/dL (0.55-1.30); POTASSIUM 3.8 mmol/L (3.5-5.1)
[2020-07-25 22:40] LABS: PROTHROMBIN TIME 10.4 SECS (9.5-12.5)
[2020-07-25 22:40] LABS: ALBUMIN 3.5 g/dL (3.4-4.8); TOTAL BILIRUBIN 0.5 mg/dL (0.0-1.0)
[2020-07-25 23:14] VITALS: BP_SYST 158
[2020-07-25] MEDS ORDERED: FLU VACC QS2020-21(65UP)/PF 0.7 ML/SYRINGE I.M. PRN (23:45)
[2020-07-26] MEDS ORDERED: NACL 0.9% 1,000 ML IV SCH
[2020-07-26] MEDS ORDERED: INSULIN REGULAR, HUMAN 100 UNITS/ML, 10 ML VIAL (humuLIN R) SUBCUT PRN
[2020-07-26] MEDS ORDERED: ALBUTEROL SULFATE 0.083% 2.5 MG/3 ML VIAL.NEB INH PRN
[2020-07-26] MEDS ORDERED: hydrALAZINE HCL 25 MG TABLET PO PRN
[2020-07-26 01:56] VITALS: BP_SYST 158
[2020-07-26] MEDS: HYDROcodone/ACETAMIN 5-325 MG TAB (NORCO/ VICODIN) PO PRN ×3 (02:58→20:43)
[2020-07-26 06:16] LABS: BASOPHILS # (AUTO) 0.1 K/uL (0.0-0.2); BASOPHILS % (AUTO) 0.6 % (0.0-2.0); EOSINOPHILS # (AUTO) 0.2 K/uL (0.0-0.4); EOSINOPHILS % (AUTO) 1.9 % (0.0-4.0); HEMATOCRIT 37.4 % (36-48); HEMOGLOBIN 12.7 g/dL (12.0-16.0); LYMPHOCYTES # (AUTO) 3.2 K/uL (1.0-5.5); LYMPHOCYTES % (AUTO) 33.2 % (20.5-51.5); MEAN CORPUSCULAR HEMOGLOBIN 34 pg (27-31); MEAN CORPUSCULAR HGB CONC 34 % (32-36); MEAN CORPUSCULAR VOLUME 99 fL (79.0-98.0); MONOCYTES # (AUTO) 0.5 K/uL (0.0-1.0); MONOCYTES % (AUTO) 4.9 % (1.7-9.3); NEUTROPHILS # (AUTO) 5.7 K/uL (1.8-7.7); NEUTROPHILS % (AUTO) 59.4 % (40.0-70.0); PLATELET COUNT (AUTO) 210 K/uL (130-430); RED BLOOD CELL COUNT(AUTO) 3.77 MIL/uL (4.2-6.2); RED CELL DISTRIBUTION WIDTH 12.8 % (9.0-15.0); WHITE BLOOD COUNT (AUTO) 9.5 K/uL (4.8-10.8)
[2020-07-26 06:52] LABS: ALBUMIN 3.1 g/dL (3.4-4.8); CREATININE 0.62 mg/dL (0.55-1.30); POTASSIUM 3.8 mmol/L (3.5-5.1); TOTAL BILIRUBIN 0.5 mg/dL (0.0-1.0)
[2020-07-26 07:40] VITALS: BP_SYST 131; BP_SYST 192
[2020-07-26] MEDS: ANASTROZOLE 1 MG TABLET (ARIMIDEX) PO SCH (08:19)
[2020-07-26] MEDS: amLODIPine BESYLATE 5 MG TABLET PO SCH (08:20)
[2020-07-26] MEDS ORDERED: ROSUVASTATIN CALCIUM 5 MG/TAB (CRESTOR) PO SCH (09:00)
[2020-07-26] MEDS ORDERED: SOTALOL (AF) 80 MG TABLET PO SCH (09:00)
[2020-07-26 10:28] VITALS: BP_SYST 169
[2020-07-26] MEDS ORDERED: SOTALOL HCL 80 MG TABLET PO ONE (10:45)
[2020-07-26 12:15] VITALS: BP_SYST 164
[2020-07-26 16:19] VITALS: BP_SYST 145
[2020-07-26 17:52] LABS: BASOPHILS # (AUTO) 0.1 K/uL (0.0-0.2); BASOPHILS % (AUTO) 1.2 % (0.0-2.0); EOSINOPHILS # (AUTO) 0.2 K/uL (0.0-0.4); EOSINOPHILS % (AUTO) 2.3 % (0.0-4.0); HEMATOCRIT 39.7 % (36-48); HEMOGLOBIN 13.5 g/dL (12.0-16.0); LYMPHOCYTES # (AUTO) 2.3 K/uL (1.0-5.5); LYMPHOCYTES % (AUTO) 25.9 % (20.5-51.5); MEAN CORPUSCULAR HEMOGLOBIN 34 pg (27-31); MEAN CORPUSCULAR HGB CONC 34 % (32-36); MEAN CORPUSCULAR VOLUME 99 fL (79.0-98.0); MONOCYTES # (AUTO) 0.5 K/uL (0.0-1.0); MONOCYTES % (AUTO) 5.3 % (1.7-9.3); NEUTROPHILS # (AUTO) 5.9 K/uL (1.8-7.7); NEUTROPHILS % (AUTO) 65.3 % (40.0-70.0); PLATELET COUNT (AUTO) 216 K/uL (130-430); RED BLOOD CELL COUNT(AUTO) 4.01 MIL/uL (4.2-6.2); RED CELL DISTRIBUTION WIDTH 12.6 % (9.0-15.0)
[2020-07-26 20:00] VITALS: BP_SYST 153
[2020-07-26] MEDS: SOTALOL HCL 80 MG TABLET PO SCH (20:42)
[2020-07-26] MEDS ORDERED: ATORVASTATIN 20 MG TABLET PO SCH (21:00)
[2020-07-27 00:14] VITALS: BP_SYST 163
[2020-07-27 08:00] VITALS: BP_SYST 150
[2020-07-27] MEDS: SOTALOL HCL 80 MG TABLET PO SCH (09:00)
[2020-07-27] MEDS: ANASTROZOLE 1 MG TABLET (ARIMIDEX) PO SCH (09:28)
[2020-07-27] MEDS: amLODIPine BESYLATE 5 MG TABLET PO SCH (09:29)
[2020-07-27 12:00] VITALS: BP_SYST 158
[2020-07-27 12:02] VITALS: BP_SYST 158
== END 2020-07-27 15:35 | disposition home or self-care (01) | DRG 151 ==
LOC: SED 20:44 → OBSVTOIN 22:00 → SMU 22:00 → OBSVTOIN 07-27 10:51 → INTOOBSV 07-27 10:51 → UNDODISIN 07-27 15:35
PROVIDERS: ADMIT Internal Medicine Hospice and Palliative Medicine; ATTEND Internal Medicine Hospice and Palliative Medicine
PROC: 2Y41X5Z Packing of Nasal Region using Packing Material (ICD-10-PCS; principal; 2020-07-25)
DX: R04.0 Epistaxis (principal); I48.91 Unspecified atrial fibrillation; G47.33 Obstructive sleep apnea (adult) (pediatric); E11.9 Type 2 diabetes mellitus without complications; G47.30 Sleep apnea, unspecified; I10 Essential (primary) hypertension; Z20.828 Contact with and (suspected) exposure to other viral communicable diseases; I25.10 Atherosclerotic heart disease of native coronary artery without angina pectoris; I34.1 Nonrheumatic mitral (valve) prolapse; Z79.01 Long term (current) use of anticoagulants; Z82.49 Family history of ischemic heart disease and other diseases of the circulatory system; Z83.3 Family history of diabetes mellitus; Z85.3 Personal history of malignant neoplasm of breast; Z85.528 Personal history of other malignant neoplasm of kidney; Z88.5 Allergy status to narcotic agent
CPT/HCPCS: 36415; 71045; 80053; 82962; 85025; 85610-TC; 85730-TC; 93005; 99291; G0378; J7030

== ENCOUNTER 2020-12-25 09:12 | Emergency (ER) | payer BC, OTHER ==
[~2020-12-25 09:12] MED LIST changes: +AMLO5TAB4 PO; -APIX5TAB4 PO; -HYDR12.55 PO; -METF-379 PO; -PRAV20TA PO; +ROSU5TAB PO; -VALS320T2 PO; -WARF5TAB2 PO
[2020-12-25 09:24] VITALS: BP_SYST 207
[2020-12-25] MEDS ORDERED: LABETALOL 100 MG/ 20ML VIAL IVP ONE ×2 (10:00→12:45)
[2020-12-25] MEDS ORDERED: ONDANSETRON HCL 4 MG/2 ML VIAL IVP ONE ×2 (10:00→15:45)
[2020-12-25 10:28] LABS: CALCIUM 10.1 mg/dL (8.4-11.0); CREATININE 0.91 mg/dL (0.55-1.30)
[2020-12-25 10:31] LABS: PROTHROMBIN TIME 10.6 SECS (9.5-12.5)
[2020-12-25 10:34] LABS: ALBUMIN 3.8 g/dL (3.4-4.8)
[2020-12-25 10:37] LABS: BASOPHILS # (AUTO) 0.1 K/uL (0.0-0.2); BASOPHILS % (AUTO) 0.8 % (0.0-2.0); EOSINOPHILS # (AUTO) 0.1 K/uL (0.0-0.4); EOSINOPHILS % (AUTO) 0.7 % (0.0-4.0); HEMATOCRIT 42.6 % (36-48); HEMOGLOBIN 14.8 g/dL (12.0-16.0); LYMPHOCYTES # (AUTO) 1.8 K/uL (1.0-5.5); LYMPHOCYTES % (AUTO) 18.3 % (20.5-51.5); MEAN CORPUSCULAR HEMOGLOBIN 34 pg (27-31); MEAN CORPUSCULAR HGB CONC 35 % (32-36); MEAN CORPUSCULAR VOLUME 98 fL (79.0-98.0); MONOCYTES # (AUTO) 0.3 K/uL (0.0-1.0); NEUTROPHILS # (AUTO) 7.8 K/uL (1.8-7.7); NEUTROPHILS % (AUTO) 77.2 % (40.0-70.0); PLATELET COUNT (AUTO) 251 K/uL (130-430); RED BLOOD CELL COUNT(AUTO) 4.34 MIL/uL (4.2-6.2); RED CELL DISTRIBUTION WIDTH 13.5 % (9.0-15.0); WHITE BLOOD COUNT (AUTO) 10.1 K/uL (4.8-10.8)
[2020-12-25 11:33] LABS: BILIRUBIN,URINE 1+ (NEGATIVE); CLARITY/URINE CLEAR (CLEAR); COLOR,URINE YELLOW (YELLOW); GLUCOSE,URINE NEGATIVE (NEGATIVE); KETONES,URINE TRACE (NEGATIVE); LEUKOCYTE ESTERASE ,URINE 1+ (NEGATIVE); NITRITE, URINE NEGATIVE (NEGATIVE); PH,URINE 6.5 (5.0-8.0); PROTEIN URINE 2+ (NEGATIVE); UROBILINOGEN,URINE 0.2 (0.2-1.0)
[2020-12-25 11:46] LABS: BLOOD, URINE TRACE (NEGATIVE)
[2020-12-25 11:53] LABS: BACTERIA,URINE RARE /HPF (None Seen)
[2020-12-25 11:54] LABS: HYALINE CASTS, URINE 0-10 /LPF (None Seen); MUCUS,URINE 1+ /LPF (None Seen)
[2020-12-25] MEDS ORDERED: IBUPROFEN 800 MG TABLET PO ONE (13:15)
[2020-12-25] MEDS ORDERED: LOSARTAN POTASSIUM 50 MG TABLET (COZAAR) PO ONE (13:45)
[2020-12-25] MEDS ORDERED: hydrALAZINE HCL 20 MG/ML VIAL IVP ONE ×2 (14:15→15:15)
[2020-12-25] MEDS ORDERED: LOSA50TA3 PO (15:15)
[2020-12-25 15:40] VITALS: BP_SYST 174
== END 2020-12-25 15:40 | disposition home or self-care (01) ==
LOC: SED 09:12
DX: R51.9 Headache, unspecified (principal); I10 Essential (primary) hypertension; E11.9 Type 2 diabetes mellitus without complications; I48.91 Unspecified atrial fibrillation; G47.30 Sleep apnea, unspecified; Z90.49 Acquired absence of other specified parts of digestive tract; Z79.899 Other long term (current) drug therapy; Z88.6 Allergy status to analgesic agent
CPT/HCPCS: 36415; 70450; 71045; 76376; 80053; 81000; 83880; 84484; 85025; 85610; 85730; 87086; 93005; 96374; 96375; 96376; 99285; J0360; J2405; J3490